=== PATIENT | male | born 1970 | race Caucasian/White ===

== ENCOUNTER 2016-08-22 20:42 | Emergency (ER) | payer MEDICAID ==
[2016-08-22] MEDS ORDERED: IBUPROFEN 600 MG TABLET PO ONE (21:53)
[2016-08-22] MEDS ORDERED: SULFAMETH/TRIMETH DS 800/160 MG TABLET PO ONE (21:53)
== END 2016-08-22 23:17 | disposition home or self-care (01) ==
DX: L02.416 Cutaneous abscess of left lower limb (principal); I10 Essential (primary) hypertension; Z87.891 Personal history of nicotine dependence
CPT/HCPCS: 10060; 87070; 87205; 99282; 99283; A9270

== ENCOUNTER 2023-11-20 13:07 | Outpatient (CLI) | payer MEDICAID | END 2023-11-20 13:08 | disposition left against medical advice (07) | LOC: EMS 13:07 | DX: S61.531A Puncture wound without foreign body of right wrist, initial encounter (principal); T63.461A Toxic effect of venom of wasps, accidental (unintentional), initial encounter; Y92.838 Other recreation area as the place of occurrence of the external cause; R42 Dizziness and giddiness; R53.1 Weakness; H53.8 Other visual disturbances; R25.1 Tremor, unspecified; R45.89 Other symptoms and signs involving emotional state ==